=== PATIENT | male | born 1990 | race Caucasian/White ===

== ENCOUNTER 2018-02-21 22:54 | Emergency (ER) | payer OTHER, SELFPAY ==
[2018-02-21 23:05] VITALS: BP 144/91; PULSE 76; RESP 18; TEMP 36.9; O2SAT 98; BMI 29.0
--- NOTE | 2018-02-22 00:14 | ED_ITS ---
HPI - Back Pain/Injury General Chief Complaint: Back Pain/Injury Stated Complaint: LOTS OF BACK PAIN Time Seen by Provider: 02/21/18 23:09 History of Present Illness HPI Narrative: HPI 27-year-old otherwise healthy male presents for evaluation of 3+ months of mild waxing and waning nonradiating left lateral lumbar region pain that is worsened with physical activity and relieved by rest. Patient is in the [employer] and has been increase in his physical activity for upcoming physical fitness test. Patient saw a [employer] [employer] one [facility] was placed on Flexeril and NSAIDs without significant improvement. Patient denies a history of recent trauma, fevers, chills, unexpected weight loss, decreased perineal sensation when toileting, difficulty urinating or incontinence, morning stiffness, IV drug use, recent invasive medical procedures, presyncope, abdominal pain, Marfan 's disease, or dysuria. M/S/F/SocHx notable for: please see HPI; remainder reviewed with patient and in chart. ROS: Negative constitutional, eye, cardiovascular, pulmonary, GI, , MSK, skin , neurologic, psychiatric, endocrine unless noted in the HPI. Exam Gen: Pleasant, non-toxic appearing, resting comfortably. HEENT: NC, AT, PEERL, EOMI. Resp: CTAB Card: RRR GI: ND, non-tender to palpation, no palpable midline masses, no palpable midline pulsatility. : No CVA tenderness to percussion bilaterally. MSK: No visible deformities, strength and tone WNL. No lower thoracic or lumbar spinal TTP, step offs or deformities. Approximately on a mid left scapular line from L3 to L5 there is mild soft tissue tenderness palpation without palpable abnormalities, no further paraspinal TTP. Skin: Normal color with no visible lesions. Neuro: AO x 3, no facial asymmetry, vision and hearing WNL. Straight leg raise test - negative right, negative left. BLE distal sensation intact, 5/5 dorsiflexion / plantarflexion bilaterally. Gait: mildly antalgic, normal, narrow based gait, able to walk unassisted and stand on heels and toes with full apparent strength. Psych: Mood and affect appropriate. MDM Previous chart, nursing note, and vitals reviewed. A: 27-year-old otherwise healthy male presents for evaluation of 3+ months of mild waxing and waning nonradiating left lateral lumbar region pain that is worsened with physical activity and relieved by rest. DDx: muscle strain, muscle spasm, sciatica, lumbar radiculopathy, cauda equina syndrome, spinal cord abscess, vertebral osteomyelitis, vertebral diskitis, fracture, seronegative spondyloarthropathy, abdominal aortic aneurysm. Evaluation: * Cauda equina - consider unlikely given normal perineal sensation, lack of incontinence or urinary retention. * Infection - abscess, vertebral osteomyelitis, and diskitis are unlikely as the patient is immunocompetent and is with an absence of infectious signs and risk factors on ROS, and a lack of point tenderness. * Fracture - doubt given the absence of spinal TTP and lack of prior trauma * Seronegative spondyloarthropathy - unlikely, no further evaluation currently indicated given the absence of morning stiffness and negative RA, psoriatic arthritis, and autoimmune disease history. * AAA or Dissection - given the lack of a palpable pulsatile abdominal mass, abdominal pain, presyncope, an abdominal aortic aneurysm as well as dissection is considered unlikely and further investigation is not currently indicated. [* Consider muscle strain to be the most likely cause of the patient's symptoms. Counseled patient regarding natural course of musculoskeletal back pain, given return to care instructions, and recommendation for primary care physician follow up. Discharged with instructions to advances activity as tolerated, NSAIDs for pain. Impression: Back Pain. (please reference below for remainder of encounter information) Related Data Home Medications Medication Instructions Recorded Confirmed cyclobenzaprine 02/21/18 ibuprofen 02/21/18 Allergies Allergy/AdvReac Type Severity Reaction Status Date / Time No Known Allergies Allergy Uncoded 01/14/18 12:50 [facility] [place] Social History Smoking Status: Never smoker Exam Initial Vital Signs Initial Vital Signs: Vital Signs Temperature 98.5 F 02/21/18 23:05 Pulse Rate 76 02/21/18 23:05 Respiratory Rate 18 02/21/18 23:05 Blood Pressure 144/91 H 02/21/18 23:05 Pulse Oximetry 98 02/21/18 23:05 Course Vital Signs - 8 hr 02/21/18 23:05 Temperature 98.5 F Pulse Rate 76 Respiratory Rate 18 Blood Pressure 144/91 H Pulse Oximetry 98 Discharge Plan Departure Prescriptions: No Action ibuprofen RF: 0 cyclobenzaprine RF: 0
[2018-02-22 00:20] VITALS: BP 120/82; PULSE 78; RESP 16; O2SAT 98
== END 2018-02-22 00:21 | disposition home or self-care (01) ==
PROVIDERS: Emergency Provider Emergency Medicine; Family Provider Family Medicine; PCP Family Medicine
DX: M54.9 Dorsalgia, unspecified (principal)
CPT/HCPCS: 99282

== ENCOUNTER → 2022-06-05 08:45 | Outpatient (CLI) | payer OTHER, SELFPAY ==
[2022-06-05 11:04] LABS: Add Manual Diff / Slide Review NO; Basophils Absolute Auto 0 /uL (0-100); Eosinophils Absolute Auto 100 /uL (0-450); Eosinophils Percent Auto 1.7 % (2-4); Hematocrit 41.3 % (41-53); Hemoglobin 14.2 g/dL (13.5-17.5); Lymphocytes Absolute Auto 1200 /uL (1100-4500); Mean Corpuscular HGB Conc 34.3 % (30-36); Mean Corpuscular Hemoglobin 28.7 PG (26-34); Mean Corpuscular Volume 83.7 fL (80-100); Monocytes Absolute Auto 300 /uL (0-900); Monocytes Percent Auto 6.3 % (3-14); Neutrophils Absolute Auto 3400 /uL (1500-7000); Platelet Count 230 X10^3/uL (150-400); Red Blood Cell Count 4.94 X10^6/uL (4.5-5.9); Red Cell Distribution Width 13.2 % (11.6-14.8)
[2022-06-05 11:27] LABS: Alanine Aminotransferase 60 IU/L (<50); Albumin 4.8 g/dL (3.5-5.0); Albumin Globulin Ratio 1.6 (1.0-2.8); Alkaline Phosphatase 69 U/L (38-126); Aspartate Aminotransferase 35 IU/L (17-59); BUN Creatinine Ratio 13.3 (6-22); Bilirubin Total 0.5 mg/dL (0.2-1.3); Blood Urea Nitrogen 12 mg/dL (9-20); Calcium 9.5 mg/dL (8.4-10.2); Carbon Dioxide 29 mmol/L (22-32); Chloride 103 mmol/L (98-107); Estimated Glomerular Filt Rate > 60 mL/min (>60); Glucose 95 mg/dL (70-100); HEMOLYSIS < 15 (0-50); Potassium 4.7 mmol/L (3.4-5.1); Sodium 140 mmol/L (137-145); Total Protein 7.8 g/dL (6.3-8.2)
== END ==
PROVIDERS: Family Provider Family Medicine; PCP Family Medicine; Referring Provider Physician Assistant; Visit Provider Physician Assistant
DX: R11.0 Nausea (principal)
CPT/HCPCS: 36415; 80053; 85025